=== PATIENT | female | born 1955 | race Caucasian/White ===

== ENCOUNTER 2018-09-22 17:47 | Emergency (ER) | payer OTHER, BC, SELFPAY ==
[2018-09-22 17:48] VITALS: BP 192/81; PULSE 72; RESP 16; TEMP 36.7; O2SAT 100; BMI 25.2
--- NOTE | 2018-09-22 18:15 | RAD_ITS ---
STUDY: X-RAY - RIGHT HAND, ATTENTION FOURTH FINGER REASON FOR EXAM: Female, 63 years old. Trauma TECHNIQUE: 3 view(s) of the finger were obtained. COMPARISON: None. FINDINGS: There is no evidence of fracture or dislocation. There are no significant degenerative changes. There are no radiodense foreign bodies. RAD/Finger(s) Min 2 Views IMPRESSION: No fracture or dislocation. Electronically Signed: Nathan Lu, at 19:09 EDT Tel , Service support ,
--- NOTE | 2018-09-22 18:27 | ED.VIS.UPPEX ---
History of Present Illness Chief Complaint: Upper Extremity Injury Informant: Patient Occurred: Today Mechanism/Context: Injury, Work Related Current Severity: 2/10 Maximum Severity: 5/10 Worsened by: Movement and palpation Relieved by: Rest Associated Symptoms: Negative for: Parasthesia, Weakness, Loss of Funtion Narrative: Patient is a 63-year-old [id number] woman who presents with crush injury to her right ring finger. This occurred at work. Tetanus is up-to-date. She complains of pain that she localizes over the PIP joint of the right ring finger. She reports increased pain with movement. She has no other complaints. Tetanus Immunization: <5 years Prior similar symptoms: No Recent Illness/Hospitalization: No Past Medical History - Allergies and Home Meds Allergies/Adverse Reactions: Allergies Penicillins Allergy (Verified 09/22/18 17:51) Unknown prochlorperazine edisylate [From Compazine] Allergy (Verified 09/22/18 17:51) Unknown prochlorperazine maleate [From Compazine] Allergy (Verified 09/22/18 17:51) Unknown aspirin Adverse Reaction (Verified 09/22/18 17:51) Unknown Primary Care Physician: Holli Soares,Out of [Primary Care Provider] - Past Medical History: None Surgical History: noncontributory Lives: Alone Smoking Status: Never smoker Alcohol: None Review of Systems Musculoskeletal: Reports: Swelling, Extremity Pain - Right ring finger. Denies: Myalgias, Arthralgias, Neck pain, Back pain Skin: Reports: Abrasions. Denies: Rash, Abscess, Wounds Neurological: Denies: Weakness, Parasthesia, Numbness Hematologic: Denies: Easy bruising, Easy bleeding Physical Exam Vital Signs/Narrative: Vital Signs Temp Pulse Resp BP Pulse Ox 09/22/18 17:48 98.0 F 72 16 192/81 H 100 Right Forearm: Negative for: Abrasion, Contusion, Deformity, Edema, Hematoma, Limited ROM, - Right Wrist: Negative for: Abrasion, Contusion, Deformity, Edema, Hematoma, Limited ROM, - Right Hand: Negative for: Abrasion, Contusion, Deformity, Edema, Hematoma, Limited ROM, - Right Finger: Abrasion, Contusion, Limited ROM, - - Is no laxity of the collateral ligaments with stress testing. The extensor commonest tendon is intact. The flexor digitorum superficialis and the flexor digitorum profundus are intact. Capillary refill is normal. Two-point discrimination is normal. There is no subungual hematoma noted. There is soft tissue swelling and pain to palpation over the PIP joint. There is no significant increased pain on the volar surface to suggest a volar plate injury.. Negative for: Deformity, Edema, Hematoma General: Well nourished, Well developed Eyes: Perrl, EOMI ENT: No Trauma, Moist Mucous Membranes Cardiovascular: Regular rate, Regular rhythm, No murmurs Respiratory: No distress Neurological: Alert, Oriented x3, Cranial nerves II-XII grossly intact, Normal Strength, Normal Sensation Psychological: Normal affect Diagnostic/Tx/Re-eval Chest X-Ray - ED: Read by ED Physician, - - View x-ray of the right ring finger was obtained. There is notes of fracture, subluxation, dislocation or foreign body. The x-ray is normal. - Medical Decision Making Is obtained to evaluate for fracture. None was noted. Symptomatic treatment i.e. rest, elevation, ice and anti-inflammatory since there is no contraindication. ED Disposition - Plan for ED Patient: Disposition: Home or Assisted Living Diagnosis: Contusion of right ring finger without damage to nail, initial encounter, Abrasion of finger, right Instructions: ED Contusion Finger, ED Abrasion Referrals: [facility] Doctor,Out of [Primary Care Provider] - Corporate,Care [GROUP OF PHYSICIANS] - As Needed
== END 2018-09-22 19:05 | disposition home or self-care (01) ==
LOC: ED 18:43
PROVIDERS: Emergency Provider Emergency Medicine
DX: S60.041A Contusion of right ring finger without damage to nail, initial encounter (principal); S60.414A Abrasion of right ring finger, initial encounter; X58.XXXA Exposure to other specified factors, initial encounter; Y93.9 Activity, unspecified; Y92.9 Unspecified place or not applicable; Y99.0 Civilian activity done for income or pay
CPT/HCPCS: 73140; 99282

== ENCOUNTER 2018-10-14 22:12 | Emergency (ER) | payer BC, SELFPAY ==
[2018-09-24 13:33] VITALS: BMI 25.2
[2018-10-14 22:13] VITALS: BP 147/86; PULSE 68; RESP 15; TEMP 36.7; BMI 25.4
--- NOTE | 2018-10-14 23:40 | ED.DCSUM_ITS ---
- ER Visit Summary Date of Service: 10/14/18 Chief Complaint: Sore throat History of Present Illness: The patient is a 63 F who noted her left ear was painful earlier today. It improved with Tylenol. Tonight she is at work and noted a slight soreness in the left side of her throat when she swallowed she f elt a lump in the back portion of her mouth. She denies any known injury. Physical Examination: Vital signs unremarkable. Patient seen on the side the bed no acute distress. She speaks in a strong voice and is tolerating secretions well. Head and neck examination was TMs to be clear bilaterally. Intraoral examination was a small ulceration of the left posterior soft palate with some surrounding inflammation. Posterior pharynx exam itself is normal. Heart is regular rate and rhythm. Lung sounds clear. Test Results: [] Emergency Department Course and Treatment: Patient be covered with antibiotics due to the intraoral lesion and the amount of bacteria noted in the mouth. She is given first dose of clindamycin here and a prescription for the same as she does have a penicillin allergy. Treatment Plan: [] Disposition: Discharge Impression: Intraoral ulceration This note was generated with [employer] dictation software. It may contain incorrect words, spelling, and punctuation that were not noted in review of the chart prior to signing ED Disposition - Plan for ED Patient: Disposition: Home or Assisted Living Prescriptions: Clindamycin [Cleocin] 300 mg PO 4X/DAY #80 capsule Referrals: [facility] Doctor,Out of [Primary Care Provider] -
[2018-10-14 23:49] VITALS: BP 140/80; PULSE 74; RESP 16; O2SAT 98
[2018-10-14] MEDS: Clindamycin HCl 150 MG Capsule 300 MG PO (23:52)
== END 2018-10-14 23:52 | disposition home or self-care (01) ==
LOC: ED 23:49
PROVIDERS: Emergency Provider Emergency Medicine
DX: K13.79 Other lesions of oral mucosa (principal)
CPT/HCPCS: 99283